=== PATIENT | male | born 1945 | race Caucasian/White ===

== ENCOUNTER 2018-09-26 08:24 | Emergency (ER) | payer OTHER ==
--- NOTE | 2018-09-26 08:32 | EDPHY ---
H & P Stated Complaint: ABD PAIN Time Seen by Provider: 09/26/18 08:30 - Personal History Current Tetanus/Diphtheria Vaccine: No - Medical/Surgical History Hx Asthma: No Hx Chronic Respiratory Disease: No Hx Diabetes: No Hx Cardiac Disease: No Hx Renal Disease: No Hx Cirrhosis: No Hx Alcoholism: No Hx HIV/AIDS: No Hx Splenectomy or Spleen Trauma: No Other PMH: Denies pmh. Tonsillectomy. HTN - Social History Smoking Status: Former smoker Constitutional: Initial Vital Signs Temperature (C) 36.8 C 09/26/18 08:25 Heart Rate 64 09/26/18 08:25 Respiratory Rate 16 09/26/18 08:25 Blood Pressure 154/78 H 09/26/18 08:25 O2 Sat (%) 98 09/26/18 08:25 O2 Delivery Mode Room Air Allergies/Adverse Reactions: No Known Allergies Allergy (Unverified 02/08/15 12:21) Home Medications: Medication Instructions Recorded "Htn Med" 09/26/18 Medical Decision Making - Diagnostics Imaging Results: Imaging Impressions Abdomen CT 09/26/18 08:35 Impression: 1. Moderate constipation. Minimal diverticulosis without evidence for diverticulitis. 2. Nonobstructive left nephrolithiasis. 3. Degenerative change, as above. Results called and discussed with Michael German MD on September 26, 2018 at 0946 hours. ED Course/Re-evaluation: CHIEF COMPLAINT: Abdominal pain HISTORY OF PRESENT ILLNESS: The patient is a 73 y/o male with a history of hypertension complaining of abdominal pain, onset last night. He awoke around 2: 00 AM this morning from abdominal pain. The pain did not improved over time, prompting his visit. He has associated nausea. He denies any other associated symptoms. He reports a history of painful gas but no abdominal surgery. REVIEW OF SYSTEMS: A comprehensive 10 system review of systems is otherwise negative aside from elements mentioned in the history of present illness and medical decision making. PHYSICAL EXAM: HR, BP, O2 Sat, RR. Temp noted General Appearance: Alert, well hydrated, appropriate, and non-toxic appearing. Head: Atraumatic without scalp tenderness or obvious injury Eyes: Pupils equal, round, reactive to light and accommodation, EOMI, no trauma , no injection. Ears: Clear bilaterally, no perforation, normal landmarks Nose: Atraumatic, no rhinorrhea, clear. Throat: There is no erythema or exudates, no lesions, normal tonsils, mucus membranes moist. Neck: Supple, 2+ carotid upstroke, nontender, no lymphadenopathy. Respiratory: No retractions, no distress, no wheezes, and no accessory muscle use. Cardiovascular: Regular rate and rhythm, no murmurs, rubs, or gallops. Gastrointestinal: Increased tenderness in the left lower quadrant. Abdomen is soft, non-distended, no masses, no rebound, no guarding, no peritoneal signs. Epigastric normal and non-tender. No Nino's sign. Musculoskeletal: Normal active ROM of all extremities, atraumatic. Neurological: Alert, appropriate, and interactive. Skin: No rashes, good turgor, no nodules on palpation. Past medical history: Hypertension Past surgical history: Tonsillectomy Family history: Non-contributory Social history: at bedside, lives in [place], retired DIAGNOSTICS/PROCEDURES/CRITICAL CARE TIME: Study: CT of the abdomen Indication: Abdominal pain, nausea Results: CT scan of the body parts was obtained. The results of the study are indicative of constipation. The study was read by the radiologist, Dr. Chavez. I viewed the images myself on the PACS system. DIFFERENTIAL DIAGNOSIS: The differential diagnosis for the patient's abdominal pain included but was not limited to constipation, appendicitis, cholecystitis, hernias, testicular torsion, gastritis, and urinary tract infection. MEDICAL DECISION MAKING: The patient presents with abdominal pain and nausea, onset almost 7 hours ago. On exam, he has increased tenderness in the left lower quadrant. Negative Nino's sign. Plan for basic metabolic panel, CBC, liver function, lipase, and abdominal CT with contrast. 4mg Zofran, 0.5mg Dilaudid, and 1 L NS fluids for symptoms. 9:45 AM - The patient's CT indicates constipation. He reports he continues to have pain. I offered admission but he decline at this time. Discharge instructions include taking magnesium citrate. Follow up instructions and return precautions given. The patient agrees to this course of action. - Data Points Laboratory Results: Laboratory Results 09/26/18 08:37 09/26/18 08:37 09/26/18 09/26/18 09/26/18 08:44 08:37 08:37 WBC 11.28 10^3/uL H 10^3/uL (3.80-9.50) RBC 4.50 10^6/uL 10^6/uL (4.40-6.38) Hgb 13.6 g/dL L g/dL (13.7-17.5) POC Hgb 14.6 gm/dL gm/dL (13.7-17.5) Hct 40.5 % % (40.0-51.0) POC Hct 43 % % (40-51) MCV 90.0 fL fL (81.5-99.8) MCH 30.2 pg pg (27.9-34.1) MCHC 33.6 g/dL g/dL (32.4-36.7) RDW 11.9 % % (11.5-15.2) Plt Count 223 10^3/uL 10^3/uL (150-400) MPV 10.1 fL fL (8.7-11.7) Neut % (Auto) 87.5 % H % (39.3-74.2) Lymph % (Auto) 7.4 % L % (15.0-45.0) Pierce % (Auto) 4.2 % L % (4.5-13.0) Eos % (Auto) 0.2 % L % (0.6-7.6) Baso % (Auto) 0.3 % % (0.3-1.7) Nucleat RBC Rel Count 0.0 % % (0.0-0.2) Absolute Neuts (auto) 9.87 10^3/uL H 10^3/uL (1.70-6.50) Absolute Lymphs (auto) 0.84 10^3/uL L 10^3/uL (1.00-3.00) Absolute Monos (auto) 0.47 10^3/uL 10^3/uL (0.30-0.80) Absolute Eos (auto) 0.02 10^3/uL L 10^3/uL (0.03-0.40) Absolute Basos (auto) 0.03 10^3/uL 10^3/uL (0.02-0.10) Absolute Nucleated RBC 0.00 10^3/uL 10^3/uL (0-0.01) Immature Gran % 0.4 % % (0.0-1.1) Immature Gran # 0.05 10^3/uL 10^3/uL (0.00-0.10) POC Sodium 140 mEq/L mEq/L (135-145) Sodium 138 mEq/L mEq/L (135-145) POC Potassium 4.0 mEq/L mEq/L (3.3-5.0) Potassium 4.4 mEq/L mEq/L (3.3-5.0) POC Chloride 104 mEq/L mEq/L (97-110) Chloride 104 mEq/L mEq/L (97-110) Carbon Dioxide 25 mEq/l mEq/l (22-31) Anion Gap 9 mEq/L mEq/L (6-14) POC BUN 22 mg/dL mg/dL (7-23) BUN 21 mg/dL mg/dL (7-23) Creatinine 1.0 mg/dL mg/dL (0.7-1.3) POC Creatinine 1.0 mg/dL mg/dL (0.7-1.3) Estimated GFR > 60 Glucose 135 mg/dL H mg/dL (70-100) POC Glucose 139 mg/dL H mg/dL (70-100) Calcium 9.3 mg/dL mg/dL (8.5-10.4) Total Bilirubin 0.6 mg/dL mg/dL (0.1-1.4) Conjugated Bilirubin 0.2 mg/dL mg/dL (0.0-0.5) Unconjugated Bilirubin 0.4 mg/dL mg/dL (0.0-1.1) AST 35 IU/L IU/L (17-59) ALT 51 IU/L IU/L (21-72) Alkaline Phosphatase 76 IU/L IU/L (38-126) Total Protein 7.5 g/dL g/dL (6.3-8.2) Albumin 4.5 g/dL g/dL (3.5-5.0) Lipase 59 IU/L IU/L (23-300) Medications Given: Discontinued Medications Hydromorphone HCl (Dilaudid) 0.5 mg IVP EDNOW ONE Stop: 09/26/18 08:36 Last Admin: 09/26/18 08:53 Dose: 0.5 mg Sodium Chloride (Ns) 1,000 mls @ 0 mls/hr IV EDNOW ONE; Wide Open PRN Reason: Protocol Stop: 09/26/18 08:36 Last Admin: 09/26/18 08:52 Dose: 1,000 mls Magnesium Citrate (Magnesium Citrate) 300 ml PO EDNOW ONE Stop: 09/26/18 09:55 Last Admin: 09/26/18 10:09 Dose: 300 ml Ondansetron HCl (Zofran) 4 mg IVP EDNOW ONE Stop: 09/26/18 08:36 Last Admin: 09/26/18 08:53 Dose: 4 mg Point of Care Test Results: Chemistry 09/26/18 08:44 POC Sodium 140 mEq/L mEq/L (135-145) POC Potassium 4.0 mEq/L mEq/L (3.3-5.0) POC Chloride 104 mEq/L mEq/L (97-110) POC BUN 22 mg/dL mg/dL (7-23) POC Creatinine 1.0 mg/dL mg/dL (0.7-1.3) POC Glucose 139 mg/dL H mg/dL (70-100) ISTAT H&H 09/26/18 08:44 POC Hgb 14.6 gm/dL gm/dL (13.7-17.5) POC Hct 43 % % (40-51) Departure - Departure Disposition: Home, Routine, Self-Care Clinical Impression: Constipation Qualifiers: Constipation type: unspecified constipation type Qualified Code(s): K59.00 - Constipation, unspecified Condition: Good Instructions: Magnesium Citrate (By mouth), Constipation (ED) Additional Instructions: 1. Take magnesium citrate as directed. 2. Follow up with a spudder. 3. Return for lack of improvement in symptoms or any worsening of condition. Referrals: Ramya Denson MD [Primary Care Provider] - As per Instructions Christophe Ríos MD [Medical Doctor] - As per Instructions Report Scribed for: Michael German Report Scribed by: Georgette Shay Date of Report: 09/26/18 Time of Report: 08:46
[2018-09-26] MEDS ORDERED: NS 1,000 ML IV ONE (08:35)
[2018-09-26] MEDS ORDERED: HYDROmorphONE/DILAUDID 2 MG/ML INJ IVP ONE (08:35)
[2018-09-26] MEDS ORDERED: ONDANSETRON 4 MG/2 ML VIAL IVP ONE (08:35)
[2018-09-26] MEDS ORDERED: IOPAMIDOL (ISOVUE-300) 100 ML BTL ONE (08:42)
[2018-09-26 09:07] LABS: PLATELET COUNT 223 10^3/uL (150-400)
[2018-09-26] MEDS ORDERED: MAGNESIUM CITRATE 300 ML BOTTLE PO ONE (09:54)
[2018-09-26 10:06] VITALS: BP 151/91
== END 2018-09-26 10:12 | disposition home or self-care (01) ==
DX: K59.00 Constipation, unspecified (principal); I10 Essential (primary) hypertension; Z87.891 Personal history of nicotine dependence
CPT/HCPCS: 74177; 96361; 96374; 96375; 99285; J1170; J2405; Q9967; 82435-PO; 82565-PO; 82947-PO; 84132-PO; 84295-PO; 84520-PO; 85014-PO